=== PATIENT | female | born 1950 | race Caucasian/White ===

== ENCOUNTER 2018-10-03 11:27 | Day surgery (SDC) | payer OTHER ==
[~2018-10-03] VITALS: Ht 160 cm; Wt 57.7 kg
[2018-10-03] MEDS ORDERED: OMEPRAZOLE (12:51)
[2018-10-03] MEDS ORDERED: ASPIRIN (12:51)
[2018-10-03] MEDS ORDERED: IRON (12:51)
[2018-10-03] MEDS ORDERED: LEVOTHYROXINE (12:51)
[2018-10-03 12:57] VITALS: Ht 160 cm; Wt 57.7 kg
--- NOTE | 2018-10-03 13:24 | PREAC ---
Date/Time of Note Date/Time of Note DATE: 10/03/18 TIME: 13:22 Anesthesia Eval and Record Evaluation Time Pre-Procedure Interview DATE: 10/03/18 TIME: 13:22 Age 68 Sex female NPO: 8 hrs Preoperative diagnosis REFLUX ESOPHAGITIS Planned procedure EGD Past Medical History Past Medical History: Includes Cardio: Dyslipidemia Endo: Hypothyroid Neuro: CVA Musculoskeletal: Rheumatoid arthritis, Other (LUPUS) GI: GERD Heme: Anemia (IRON DEF) Surgery & Anesthesia Issues No known issue Meds Anticoagulation: No Beta Mayo within 24 hr: No Reason Beta Mayo not given: Pt. not on B-Mayo Reported Medications [Levothyroxine] No Conflict Check 10/03/18 [Iron] No Conflict Check 10/03/18 [Aspirin] No Conflict Check 10/03/18 [Omeprazole] No Conflict Check 10/03/18 Meds reviewed: Yes Allergies Coded Allergies: No Known Allergy (Unverified , 10/03/18) Allergies Reviewed: Yes Labs/Studies Labs Reviewed: Reviewed by anesthesiologist test: N/A Pre-procedure Exam Airway: Adequate mouth opening, Adequate thyromental dist Mallampati: Mallampati II Teeth: Normal Lung: Normal Heart: Normal ASA Physical Status ASA physical status: 3 Emergency: None Planned Anesthetic General/MAC: MAC Planned Pain Management Parenteral pain med Pre-operative Attestations Prior to commencing anesthesia and surgery, the patient was re-evaluated, there was verification of: *The patient's identity *The results of appropriate recent lab work and preoperative vital signs *The above evaluation not changing prior to induction *Anesthetic plan, risk benefits, alternative and complications discussed with patient/family; questions answered; patient/family understands, accepts and wishes to proceed. Jamey Dewitt M.D. Oct 03, 2018 13:24
[2018-10-03] MEDS ORDERED: PROPOFOL 40 ML ONE (13:28)
[2018-10-03] MEDS ORDERED: LIDOCAINE 100 MG SYRINGE ONE (13:28)
[2018-10-03 13:29] VITALS: BP 124/85; PULSE 74; RESP 18
[2018-10-03] MEDS ORDERED: FENTAnyl 50 MCG/ML VIAL ONE (13:29)
--- NOTE | 2018-10-03 14:03 | PAC ---
Date/Time of Note Date/Time of Note DATE: 10/03/18 TIME: 14:03 Post-Anesthesia Notes Post-Anesthesia Note Last documented vital signs Vital Signs Date Temp Pulse Resp B/P (MAP) Pulse Ox O2 O2 Flow FiO2 Time Delivery Rate 10/03/18 99.7 74 18 124/85 98 Room Air 13:29 (98) Activity: WNL Respiratory function: WNL Cardiovascular function: WNL Mental status: Baseline Pain reasonably controlled: Yes Hydration appropriate: Yes Nausea/Vomiting absent: Yes Jamey Dewitt M.D. Oct 03, 2018 14:03
[2018-10-03 14:28] VITALS: BP 119/62; RESP 20
== END 2018-10-03 15:02 | disposition home or self-care (01) ==
LOC: GIL 11:27
PROVIDERS: ATTEND Internal Medicine Gastroenterology
DX: K21.0 Gastro-esophageal reflux disease with esophagitis (principal); K22.2 Esophageal obstruction; K44.9 Diaphragmatic hernia without obstruction or gangrene; K29.70 Gastritis, unspecified, without bleeding
CPT/HCPCS: 43239; 88305; 88312; J2001; J3010; Z7610